=== PATIENT | male | born 1945 | race Caucasian/White ===

== ENCOUNTER 2016-07-07 | Emergency (ER) | payer OTHER ==
[~2016-07-07] MED LIST: BUPROPION HCL75 MG PO; COZAAR50 MG PO; CPAP; EFFEXOR XR150 MG PO; GLUCOPHAGE1000 MG PO; LIBRIUM CAP 2525 MG PO; LOVENOX SY40 MG/0.4 SC; NORCO 7.5-3251 EACH PO; OMEPRAZOLE20 MG PO; RISPERIDONE4 MG PO; TRAZODONE HCL100 MG PO
[2016-07-07 10:37] LABS: HEMOGLOBIN 15.1 gm/dl (14.0-17.5); RED BLOOD COUNT 5.11 M/UL (4.20-5.50); WHITE BLOOD COUNT 7.5 K/UL (4.5-11.0)
[2016-07-07 11:16] LABS: BUN/CREATININE RATIO 13 (0-10)
== END 2016-07-07 14:45 | disposition home or self-care (01) ==
PROVIDERS: Family Medicine
DX: E11.65 Type 2 diabetes mellitus with hyperglycemia (principal); R42 Dizziness and giddiness; Z79.84 Long term (current) use of oral hypoglycemic drugs; Z79.899 Other long term (current) drug therapy
CPT/HCPCS: 36415; 70450; 71010; 80053; 82550; 82553; 82962; 83874; 84484; 85025; 93005; 99284

== ENCOUNTER → 2016-07-14 | Outpatient (CLI) | payer OTHER | DX: Z13.6 Encounter for screening for cardiovascular disorders (principal); Z88.5 Allergy status to narcotic agent | CPT/HCPCS: 76706 ==

== ENCOUNTER → 2016-07-23 | Outpatient (CLI) | payer OTHER | LOC: CT 13:15 | DX: F17.210 Nicotine dependence, cigarettes, uncomplicated (principal); R91.8 Other nonspecific abnormal finding of lung field | CPT/HCPCS: G0297 ==